=== PATIENT | female | born 1995 | race Asian ===

== ENCOUNTER 2025-07-25 17:25 | Emergency (ER) | payer SELFPAY ==
[~2025-07-25] VITALS: Ht 170.2 cm; Wt 43.6 kg
[2025-07-25] MEDS ORDERED: IBUP-1456 PO (18:54)
--- NOTE | 2025-07-25 18:56 | ED.PDOC ---
HPI (NEURO) HPI Comments 29 year old year female presents to ER with complaints of headache x5 days. Patient with past medical history significant for migraines reports that she has been experiencing a left-sided migraine headache x5 days that got worse x1 day prompting her to come to ER for further evaluation. She rates her current pain an 8/10 localized to left side of forehead with associated "pressure pain" radiating towards left eye. Notes she has been taking Ibuprofen with slight relief and presents to ER ambulatory on arrival with steady gait, in no distress. Patient also reports that she feels like she can't fully open her left eye with associated photophobia x 1 day but that this has significantly improved since arrival to ER. Denies fever, body aches, chills, n/v, numbness/tingling, head injury, vision changes, neck pain, recent illness, confusion or any further symptoms/complaints Chief Complaint: Headache Time Seen by MD: 18:12 Primary Care Provider: UNKNOWN Reviewed Notes: Nurses Notes, Medications, Allergies Information Source: Patient Mode of Arrival: Ambulatory Past Medical History Past Medical History (Other): Migraines Surgical History: Denies all surgeries PROPERTY CONTROLLER History: No Pertinent PROPERTY CONTROLLER History LMP "Current" Family History Family History: Unknown Social History Smoker: Non-Smoker Alcohol: Denies ETOH Use Drugs: Denies Drug Use Lives In: Home Constitutional: denies: chills, diaphoresis, fatigue, fever, malaise, sweats, weakness, others EENTM: reports: others (As stated in HPI) Respiratory: denies: cough, hemoptysis, orthopnea, SOB at rest, shortness of breath, SOB with excertion, stridor, wheezing, others Cardiovascular: denies: chest pain, dizzy spells, diaphoresis, Dyspnea on exertion, edema, irregular heart beat, left arm pain, lightheadedness, palpitations, PND, syncope, others Gastrointestinal: denies: abdomen distended, abdominal pain, blood streaked bowels, constipated, diarrhea, dysphagia, difficulty swallowing, hematemesis, melena, nausea, poor appetite, poor fluid intake, rectal bleeding, rectal pain, vomiting, others Genitourinary: denies: abnormal vagina bleeding, burning, dyspareunia, dysuria, flank pain, frequency, hematuria, incontinence, pain, , vagina discharge, urgency, others Neurological: reports: others (As stated in HPI); denies: dizziness, fainting, headache, left sided numbness, left sided weakness, numbness, paresthesia, pre- existing deficit, right sided numbness, right sided weakness, seizure, speech problems, tingling, tremors, weakness Musculoskeletal: denies: back pain, gout, joint pain, joint swelling, muscle pain, muscle stiffness, neck pain, others Integumetry: denies: bruises, change in color, change in hair/nails, dryness, laceration, lesions, lumps, rash, wounds, others Allergic/Immunocompromised: denies: Difficulty Healing, Frequent Infections, Hives, Itching, others Hematologic/Lymphatic: denies: anemia, blood clots, easy bleeding, easy bruising, swollen glands, others Endocrine: denies: excessive hunger, excessive sweating, excessive thirst, excessive urination, flushing, intolerance to cold, intolerance to heat, u nexplained weight gain, unexplained weight loss, others Psychiatric: denies: anxiety, bipolar disorder, depression, hopeless, panic disorder, schizophrenia, sleepless, suicidal, others Physical Exam General Appearance: No Apparent Distress HEENT: Normal ENT Inspection, PERRL/EOMI, Pharynx Normal, TMs Normal Neck: Full Range of Motion, Non-Tender, Normal Respiratory: Chest Non-Tender, Lungs Clear, No Accessory Muscle Use, No Respiratory Distress, Normal Breath Sounds Cardiovascular: No Murmur, No Gallop, Regular Rate/Rhythm Breast Exam: Deferred Gastrointestinal: NOT DONE Genitalia: Deferred Pelvic: Deferred Rectal: Deferred Extremities: Normal capillary refill, Normal range of motion Neurologic: Alert, visual journalist II-XII nml as Tested, No Motor Deficits, Normal Affect, Normal Mood, No Sensory Deficits Cerebellar Function: Normal Reflexes: Normal Skin: Dry, Normal Color, Warm Peripheral Pulses: 2+ carotid (R), 2+ carotid (L), 2+ Radial (R), 2+ Radial (L), 2+ Brachial (R), 2+ Brachial (L) Lymphatic: No Adenopathy Was a procedure done? Was a procedure done?: No Sedation Sedation?: No Differential Diagnosis (SZ) Headache: Migraine, Subarachnoid Hemorrhage, Subdural Hemorrhage, Mass Lesion X-Ray, Labs, Meds, VS Vital Signs Date Time Temp Pulse Resp B/P (MAP) Pulse Ox O2 Delivery O2 Flow Rate FiO2 07/25/25 17:28 98.2 71 16 117/79 96 98.2 Lab Test 07/25/25 18:43 Range/Units White Blood Count 4.1 L 4.4-10.8 10^3/uL Red Blood Count 4.35 4.0-5.20 10^6/uL Hemoglobin 13.9 12.2-16.2 g/dL Hematocrit 40.1 36.0-46.0 % Mean Corpuscular Volume 92.1 80.0-100.0 fL Mean Corpuscular Hemoglobin 31.9 28.0-32.0 pg Mean Corpuscular Hemoglobin Concent 34.7 32.0-36.0 g/dL Red Cell Distribution Width 12.7 11.8-14.3 % Platelet Count 271 140-450 10^3/uL Mean Platelet Volume 7.7 6.9-10.8 fL Neutrophils (%) (Auto) 71.0 37.0-80.0 % Lymphocytes (%) (Auto) 20.5 10.0-50.0 % Monocytes (%) (Auto) 6.0 0.0-12.0 % Eosinophils (%) (Auto) 0.7 0.0-7.0 % Basophils (%) (Auto) 1.8 0.0-2.0 % Neutrophils # (Auto) 2.9 1.6-8.6 10 ^3/uL Lymphocytes # (Auto) 0.8 0.4-5.4 10 ^3/uL Monocytes # (Auto) 0.2 0-1.3 10 ^3/uL Eosinophils # (Auto) 0 0-0.8 10 ^3/uL Basophils # (Auto) 0.1 0-0.2 10 ^3/uL Nucleated Red Blood Cells 0.1 % Erythrocyte Sedimentation Rate 2 0-20 mm/hr Sodium Level 143 136-145 mmol/L Potassium Level 3.6 3.5-5.1 mmol/L Chloride Level 104 98-107 mmol/L Carbon Dioxide Level 27 20-31 mmol/L Anion Gap 12 5-15 Blood Urea Nitrogen 7 L 9-23 mg/dL Creatinine 0.61 0.550-1.02 mg/dL Glomerular Filtration Rate Calc 123 >90 mL/min BUN/Creatinine Ratio 11.5 10.0-20.0 Serum Glucose 85 74-106 mg/dL Calcium Level 9.7 8.7-10.4 mg/dL PATIENT: FÁTIMA STALLINGSCCT: [id number]: [id number] : 1995 LOC: ER ROOM / BED: / AGE / SEX: 29 / F ADM STATUS: REG ER SERVICE 37 ORDERING PHYSICIAN: BAKARI FRANCISCO PROCEDURE(s): OB1CT - ORBITS WO CONTRAST REASON: LEFT EYE PAIN ORDER NUMBER(s): [id number], ACCESSION NUMBER(s): [id number] COMPUTERIZED TOMOGRAPHY ORBITS WITHOUT CONTRAST REASON FOR EXAM: LEFT EYE PAIN COMPARISON: CT HEAD WITHOUT CONTRAST on DOS: 07/25/25 TECHNIQUE: Serial axial tomographic scans at 2 mm intervals were obtained through the orbits. Reconstructions in three planes were provided. Automated exposure control was used. RADIATION DOSE: CTDI: 61 mGy DLP: 774 mGy-cm FINDINGS: The globes are intact. There is no abnormal thickening of the extra-ocular muscles. The optic nerves are within normal limits and symmetric. There is no retrobulbar hematoma. There is no enlargement of the ophthalmic veins. There is no intraorbital mass. The lacrimal glands are symmetric and within normal limits. The preseptal soft tissues are within normal limits. The lamina papyracea are intact. There is no evidence of fracture of the orbital rim. The visualized mastoid air cells and paranasal sinuses are clear. IMPRESSION: No evidence of left orbit abnormality. ATED BY: MANUEL LEON MD DICTATED DATE/TIME: 07/25/252021 SIGNED BY: MANUEL LEON MD SIGNED DATE/TIME: 07/25/252021 CC: PATIENT: ALEXANDRO STALLINGS ACCT: [id number] UNIT: [id number] : 1995 LOC: ER ROOM / BED: / AGE / SEX: 29 / F ADM STATUS: REG ER SERVICE 37 ORDERING PHYSICIAN: BAKARI FRANCISCO PROCEDURE(s): OB1CT - ORBITS WO CONTRAST REASON: LEFT EYE PAIN ORDER NUMBER(s): [id number], ACCESSION NUMBER(s): [id number] COMPUTERIZED TOMOGRAPHY ORBITS WITHOUT CONTRAST REASON FOR EXAM: LEFT EYE PAIN COMPARISON: CT HEAD WITHOUT CONTRAST on DOS: 07/25/25 TECHNIQUE: Serial axial tomographic scans at 2 mm intervals were obtained through the orbits. Reconstructions in three planes were provided. Automated exposure control was used. RADIATION DOSE: CTDI: 61 mGy DLP: 774 mGy-cm FINDINGS: The globes are intact. There is no abnormal thickening of the extra-ocular muscles. The optic nerves are within normal limits and symmetric. There is no retrobulbar hematoma. There is no enlargement of the ophthalmic veins. There is no intraorbital mass. The lacrimal glands are symmetric and within normal limits. The preseptal soft tissues are within normal limits. The lamina papyracea are intact. There is no evidence of fracture of the orbital rim. The visualized mastoid air cells and paranasal sinuses are clear. IMPRESSION: No evidence of left orbit abnormality. ATED BY: MANUEL LEON MD DICTATED DATE/TIME: 07/25/252021 SIGNED BY: MANUEL LEON MD SIGNED DATE/TIME: 07/25/252021 CC: CT head without contrast reviewed CBC reviewed without any significant abnormalities ESR reviewed-normal BMP reviewed without any significant abnormalities Tylenol #3 1 tablet p.o. ordered Zofran 4 mg p.o. ordered Patient had improvement in symptoms and in no distress prior to discharge Advised to drink plenty of fluids Advised to follow up with PCP in 1-2 days Patient alert and oriented x4 prior to discharge. Patient verbalized understanding and agreeable with current plan of care Advised to return to ER immediately if symptoms worsen Images Reviewed?: Images reviewed and evaluated by me Time of 1ST Reevaluation: 18:34 Reevaluation 1ST: N/A Patient Education/Counseling: Diagnosis, Treatment, Prognosis, Need For Follow Up Family Education/Counseling: No Family Present Departure 1 Departure Time of Disposition: 18:50 Impression: Primary Impression: Migraine with aura Qualified Codes: G43.109 - Migraine with aura, not intractable, without status migrainosus Disposition: 01 HOME / SELF CARE / HOMELESS Condition: Stable e-Prescriptions Ondansetron Odt 4MG Tab (ZOFRAN PO) 4 Mg Tb 4 MG PO TID PRN, #14 TAB 0 Refills ODT TAB-DISSOLVE IN MOUTH, THEN SWALLOW Prov: BAKARI FRANCISCO 07/25/25 Ibuprofen (Ibuprofen) 800 Mg Tab 1 TAB PO TID PRN, #30 TAB 0 Refills Prov: BAKARI FRANCISCO 07/25/25 Discharged With: Self Critical Care Note Critical Care Time?: No Stability Stability form required: No Heart Score Heart Score: Heart Score Response (Comments) Value History N/A 0 EKG N/A 0 Age N/A 0 Risk Factors N/A 0 Troponin N/A 0 Total 0 BAKARI FRANCISCO Jul 25, 2025 18:56
--- NOTE | 2025-07-25 19:03 | DVH ---
COMPUTERIZED TOMOGRAPHY OF THE HEAD WITHOUT CONTRAST REASON FOR STUDY: headache COMPARISON: None TECHNIQUE: Helical tomographic scans were obtained through the brain. 2-D coronal and sagittal reformatted images are provided. Radiation optimization: All CT scans at this facility use at least one of these dose optimization techniques: Automated exposure control mA and/or kV adjustment per patient size (includes targeted exams where dose is matched to clinical indication) or iterative reconstruction. RADIATION DOSE: CTDI: 54 mGy DLP: 1080 mGy-cm FINDINGS: No suspicious intracranial hyperdensity to suggest acute blood. There is no mass effect nor midline shift. There is no hydrocephalus. The suprasellar cistern is intact. The calvarium is intact. The visualized mastoid air cells and paranasal sinuses are clear. IMPRESSION: No acute intracranial abnormality.
[2025-07-25 19:19] LABS: Chloride 104 mmol/L (98-107); Potassium 3.6 mmol/L (3.5-5.1)
[2025-07-25 19:20] LABS: Hematocrit 40.1 % (36.0-46.0); Hemoglobin 13.9 g/dL (12.2-16.2); Mean Corpuscular Hemoglobin 31.9 pg (28.0-32.0); Mean Corpuscular Volume 92.1 fL (80.0-100.0); Nucleated Red Blood Cells % 0.1 %; Sodium 143 mmol/L (136-145)
[2025-07-25 19:21] LABS: Anion Gap 12 (5-15); Calcium 9.7 mg/dL (8.7-10.4); Carbon Dioxide 27 mmol/L (20-31)
[2025-07-25 19:26] LABS: BUN/Creatinine Ratio 11.5 (10.0-20.0); Glucose 85 mg/dL (74-106)
[2025-07-25 19:39] LABS: Blood Urea Nitrogen 7 mg/dL (9-23)
--- NOTE | 2025-07-25 20:25 | DVH ---
COMPUTERIZED TOMOGRAPHY ORBITS WITHOUT CONTRAST REASON FOR EXAM: LEFT EYE PAIN COMPARISON: CT HEAD WITHOUT CONTRAST on DOS: 07/25/25 TECHNIQUE: Serial axial tomographic scans at 2 mm intervals were obtained through the orbits. Reconstructions in three planes were provided. Automated exposure control was used. RADIATION DOSE: CTDI: 61 mGy DLP: 774 mGy-cm FINDINGS: The globes are intact. There is no abnormal thickening of the extra-ocular muscles. The optic nerves are within normal limits and symmetric. There is no retrobulbar hematoma. There is no enlargement of the ophthalmic veins. There is no intraorbital mass. The lacrimal glands are symmetric and within normal limits. The preseptal soft tissues are within normal limits. The lamina papyracea are intact. There is no evidence of fracture of the orbital rim. The visualized mastoid air cells and paranasal sinuses are clear. IMPRESSION: No evidence of left orbit abnormality.
[2025-07-25] MEDS ORDERED: ZOFR4T PO (20:33)
[2025-07-25] MEDS: ACETAMINOPHEN/CODEINE#3 (300/30mg) TAB PO ONE (20:49)
[2025-07-25] MEDS: ONDANSETRON ODT 4 MG TAB PO ONE (20:49)
[2025-07-25 20:55] VITALS: BP 117/79; PULSE 71; RESP 16; TEMP 98.2; O2SAT 96
== END 2025-07-25 20:56 | disposition home or self-care (01) ==
LOC: ER 17:25
DX: G43.109 Migraine with aura, not intractable, without status migrainosus (principal)
CPT/HCPCS: 36415; 70450; 70480; 80048; 85025; 85652; 99284; Q0162